=== PATIENT | female | born 1980 | race Caucasian/White ===

== ENCOUNTER 2016-08-14 12:02 | Emergency (ER) | payer BC ==
[~2016-08-14] VITALS: Ht 167.6 cm; Wt 70.9 kg
[~2016-08-14 12:02] MED LIST: VANC5CAP PO
[2016-08-14 12:10] VITALS: TEMP 37; Ht 167.6 cm; Wt 70.9 kg
[2016-08-14] MEDS ORDERED: XYLOCAINE 1%/SOD BICARB 20 ML VIAL INFIL ONE (12:45)
[2016-08-14 12:56] LABS: BASO % 0.3 %; BASO ABS # 0.02 K/uL (0-0.2); COMPLETE YES; EOS % 0.6 %; HEMATOCRIT 35.3 % (37-47); IG% 0.1 %; LYMPH % 9.6 %; LYMPH ABS # 0.67 K/uL (1.2-3.4); MEAN CELL VOLUME 85.9 fL (80-100); MEAN CORPUSCULAR HEMOGLOBIN 29.9 pg (25-34); MEAN CORPUSCULAR HGB CONC 34.8 g/dl (32-36); MEAN PLATELET VOLUME 10.5 fL (7.4-10.4); MONO % 16.1 %; NEUT % 73.3 %; PLATELET COUNT 263 K/uL (130-400); RED BLOOD COUNT 4.11 M/uL (4.2-5.4); WHITE BLOOD COUNT 7.01 K/uL (4.8-10.8)
[2016-08-14 13:02] LABS: BUN/CREATININE RATIO 10.9 (10-20); CALCIUM 9.1 mg/dl (8.5-10.1); CREATININE 0.98 mg/dl (0.60-1.20); POTASSIUM 3.5 mmol/L (3.5-5.1)
--- NOTE | 2016-08-14 13:03 | DIAGNOSTIC IMAGING REPORT ---
CT OF THE HEAD WITHOUT CONTRAST CLINICAL HISTORY: Syncope with head injury. COMPARISON STUDY: No previous studies for comparison. CT DOSE: 537.48 mGy.cm TECHNIQUE: Helical axial images of the head were obtained without IV contrast. Automated exposure control was utilized for the study. FINDINGS: No acute intracranial hemorrhage, midline shift or mass effect is present. Brain volume is normal. Ventricular system is normal. The basilar cisterns are patent. There are no extra-axial collections. Elise-white differentiation is maintained. There are no findings to suggest acute dural sinus thrombosis or acute territorial infarct. There is a right supraorbital scalp laceration. No calvarial fracture is present. IMPRESSION: 1. No acute intracranial findings. 2. Right supraorbital laceration. No calvarial fracture. Electronically signed by: Gerry Bernabe M.D. 08/14/2016 1:01 PM Dictated Date/Time: 08/14/2016 12:59 PM
[2016-08-14 13:07] LABS: PROTHROMBIN TIME (PATIENT) 10.8 SECONDS (9.0-12.0)
--- NOTE | 2016-08-14 13:21 | DIAGNOSTIC IMAGING REPORT ---
CHEST 2 VIEWS ROUTINE CLINICAL HISTORY: cough, fever COMPARISON STUDY: No previous studies for comparison. FINDINGS: The cardiac and mediastinal contours are normal. There is no evidence of focal pulmonary consolidation. There is no evidence of failure. No pleural effusions are visualized.[ IMPRESSION: No active disease in the chest. Electronically signed by: Manuel Nguyen M.D. 08/14/2016 1:19 PM Dictated Date/Time: 08/14/2016 1:18 PM
[2016-08-14] MEDS ORDERED: OSEL75CA12 PO (14:24)
--- NOTE | 2016-08-14 14:27 | EMERGENCY ROOM VISIT NOTE ---
History First contact with patient: 12:23 Chief Complaint: FLU LIKE SX Stated Complaint: COLD/FLU, PASSED OUT AND HIT HEAD History of Present Illness The patient is a 36 year old female who presents to the Emergency Room with complaints of flulike symptoms. The patient states yesterday when she woke up she had chest congestion and a cough. Then at approximately 5:55 PM she started with chills and had a temperature 101. She started taking NyQuil and Mucinex. Today when she woke up she thought she was feeling a little better. She put toast in the toaster and then went to go to the bathroom. When she went to the bathroom she thought she was going to be nauseated and threw her up so she picked up a trash can and was holding it in front of her while sitting on the toilet. The next thing you know she was lying on the floor with blood coming from her head. Her states she was only out for approximately a minute. He heard the thump and came immediately to the bathroom. The patient currently denies any dizziness but has a slight headache at the area of a small laceration on her right forehead. The patient denies any ear pain or pressure or any sore throat. The patient does admit to some head congestion today. She did not vomit. She denies any abdominal pain or diarrhea. The patient states she did have the influenza vaccine. Review of Systems 10 system review was performed and was negative unless stated otherwise history of present illness. Past Medical/Surgical History Medical Problems: (1) No significant past medical history (2) Ovarian cyst Surgical Problems: (1) History of arthroscopic knee surgery (2) History of tubal ligation (3) History of wisdom tooth extraction Family History FH: cancer FH: diabetes mellitus FH: gallbladder disease FH: hypertension FH: lung disease Social History Smoking Status: Never Smoker Alcohol Use: none Marital Status: Occupation Status: employed Current/Historical Medications Scheduled Oseltamivir (Tamiflu), 75 MG PO BID Allergies Coded Allergies: Azithromycin (Unverified Allergy, Severe, RASH, 08/14/16) Onion (Unverified Allergy, Severe, GI SYMPTOMS, 08/14/16) Latex1 -Allergic Contact Dermititis (Verified Allergy, Intermediate, RASH , 08/14/16) Physical Exam Vital Signs Date Time Temp Pulse Resp B/P Pulse Ox O2 Delivery O2 Flow Rate FiO2 08/14/16 12:10 37.0 95 18 108/67 100 Room Air Physical Exam PHYSICAL EXAM: Vital Signs were reviewed: Reviewed Nurse's notes and agree. Oxygen saturation is 98 % on room air which is normal . GENERAL: 36-year-old female appears in no acute distress. MENTAL STATUS: Alert, oriented, coherent. HEAD: The patient has a 1 cm laceration above the right eyebrow with a small palpable mass that is tender to palpation. The remainder of the head is unremarkable. EARS: Canals clear. No hemotympanum noted TMs good light reflex , no erythema or fluid level noted. EYES: PERRLA, EOMs intact. NOSE: Nasal mucosa with moderate erythema engorgement. PHARYNX: No erythema, no edema noted. No exudate noted. Airway is adequate. NECK: Supple, non-tender. No lymphadenopathy noted. LUNGS: Clear to auscultation without wheezes rales or rhonchi. CARDIAC: Regular rate and rhythm without murmur. CERVICAL SPINE: Nontender to palpation over the spinous processes and paravertebral region. Full range of motion without pain. NEURO: Cranial nerves II through XII intact. Fine motor intact with alternating finger motions. Cerebellar bowel or function intact with [id number]. Medical Decision & Procedures ER Provider Diagnostic Interpretation: CHEST 2 VIEWS ROUTINE CLINICAL HISTORY: cough, fever COMPARISON STUDY: No previous studies for comparison. FINDINGS: The cardiac and mediastinal contours are normal. There is no evidence of focal pulmonary consolidation. There is no evidence of failure. No pleural effusions are visualized.[ IMPRESSION: No active disease in the chest. Electronically signed by: Manuel Nguyen M.D. 08/14/2016 1:19 PM Dictated Date/Time: 08/14/2016 1:[address] OF THE HEAD WITHOUT CONTRAST CLINICAL HISTORY: Syncope with head injury. COMPARISON STUDY: No previous studies for comparison. CT DOSE: 537.48 mGy.cm TECHNIQUE: Helical axial images of the head were obtained without IV contrast. Automated exposure control was utilized for the study. FINDINGS: No acute intracranial hemorrhage, midline shift or mass effect is present. Brain volume is normal. Ventricular system is normal. The basilar cisterns are patent. There are no extra-axial collections. Elise-white differentiation is maintained. There are no findings to suggest acute dural sinus thrombosis or acute territorial infarct. There is a right supraorbital scalp laceration. No calvarial fracture is present. IMPRESSION: 1. No acute intracranial findings. 2. Right supraorbital laceration. No calvarial fracture. Electronically signed by: Gerry Bernabe M.D. 08/14/2016 1:01 PM Laboratory Results 08/14/16 12:20 Red Blood Count 4.11, Mean Corpuscular Volume 85.9, Mean Corpuscular Hemoglobin 29.9, Mean Corpuscular Hemoglobin Concent 34.8, Mean Platelet Volume 10.5, Neutrophils (%) (Auto) 73.3, Lymphocytes (%) (Auto) 9.6, Monocytes (%) (Auto) 16.1, Eosinophils (%) (Auto) 0.6, Basophils (%) (Auto) 0.3, Neutrophils # (Auto ) 5.14, Lymphocytes # (Auto) 0.67, Monocytes # (Auto) 1.13, Eosinophils # (Auto ) 0.04, Basophils # (Auto) 0.02 08/14/16 12:20 Test 08/14/16 12:20 08/14/16 12:23 White Blood Count 7.01 K/uL (4.8-10.8) Red Blood Count 4.11 M/uL (4.2-5.4) Hemoglobin 12.3 g/dL (12.0-16.0) Hematocrit 35.3 % (37-47) Mean Corpuscular Volume 85.9 fL (80-100) Mean Corpuscular Hemoglobin 29.9 pg (25-34) Mean Corpuscular Hemoglobin Concent 34.8 g/dl (32-36) Platelet Count 263 K/uL (130-400) Mean Platelet Volume 10.5 fL (7.4-10.4) Neutrophils (%) (Auto) 73.3 % Lymphocytes (%) (Auto) 9.6 % Monocytes (%) (Auto) 16.1 % Eosinophils (%) (Auto) 0.6 % Basophils (%) (Auto) 0.3 % Neutrophils # (Auto) 5.14 K/uL (1.4-6.5) Lymphocytes # (Auto) 0.67 K/uL (1.2-3.4) Monocytes # (Auto) 1.13 K/uL (0.11-0.59) Eosinophils # (Auto) 0.04 K/uL (0-0.5) Basophils # (Auto) 0.02 K/uL (0-0.2) RDW Standard Deviation 40.1 fL (36.4-46.3) RDW Coefficient of Variation 12.6 % (11.5-14.5) Immature Granulocyte % (Auto) 0.1 % Immature Granulocyte # (Auto) 0.01 K/uL (0.00-0.02) Prothrombin Time 10.8 SECONDS (9.0-12.0) Prothromb Time International Ratio 1.0 (0.9-1.1) Activated Partial Thromboplast Time 24.7 SECONDS (21.0-31.0) Partial Thromboplastin Ratio 1.0 Anion Gap 10.0 mmol/L (3-11) Est Creatinine Clear Calc Drug Dose 73.5 ml/min Estimated GFR () 85.4 Estimated GFR (Non- 73.7 BUN/Creatinine Ratio 10.9 (10-20) Calcium Level 9.1 mg/dl (8.5-10.1) Influenza Type A Antigen POS for Influ A (NEG) Influenza Type B Antigen Neg for Influ B (NEG) Procedure Wound Repair: Complexity: Basic. Verbal consent was obtained after the risks and benefits were explained, including but not limited to bleeding, scarring, infection, pain, and bone/joint /nerve damage. The skin was prepped with betadine and a sterile field set. The wound was anesthetized with 2.0 ml of 1% buffered lidocaine. With direct pressure the bleeding subsided. Copious irrigation was performed using sterile saline. The wound was explored for foreign bodies and none found. Debridement was not performed. The wound edges were approximated using 6-0 Ethilon with 3 simple interrupted sutures. Hemostasis and excellent approximation was achieved. Antibacterial ointment and a sterile dressing applied. Detailed wound care instructions and signs and symptoms of infection reviewed with the patient. No complications and the patient tolerated the procedure well. ECG Indication: syncope Rhythm: normal sinus Findings: no acute ischemic change ED Course The patient was evaluated. The patient was placed on a monitor. IV access was obtained. EKG was ordered and interpreted by myself as above without any acute findings. This will later be interpreted by the field service supervisor. Chest x-ray was ordered and interpreted by the radiologist and myself as above without any acute findings. CT of the head was ordered and interpreted by the radiologist as above without any acute findings. CBC and differential, renal profile, coags were ordered. Labs are reviewed and were unremarkable. Rapid influenza was positive for influenza A and negative for influenza B. Repair of the laceration was performed as above. The patient was informed of all findings and discharged home in stable condition. Medical Decision Differential diagnosis include vasovagal syncope, dehydration, hypoglycemia, anxiety Differential diagnosis include influenza, pneumonia, URI Impression Primary Impression: Influenza A Additional Impressions: Syncope Facial laceration Departure Information Dispostion Home / Self-Care Condition GOOD Prescriptions Oseltamivir (Tamiflu) 75 Mg Cap 75 MG PO BID for 5 Days, #10 CAP Prov: Belkis Manning PA-C 08/14/16 Referrals Zeferino Parker D.O. (PCP) Forms HOME CARE DOCUMENTATION FORM, IMPORTANT VISIT INFORMATION Patient Instructions My [facility] Additional Instructions Take Tamiflu as prescribed. [id number] symptomatic treatment such as pushing fluids, Tylenol and/or ibuprofen as needed for fever and muscle aches. Antibiotic ointment and a bandage for 3 days to the laceration. Any signs of infection, follow-up with your family doctor for antibiotic treatment. Suture removal in 6 days. If any symptoms should worsen, return to ER. Follow-up with your family physician in 3 days for reevaluation. Problem Qualifiers
[2016-08-14 14:40] VITALS: BP 120/67; PULSE 86; O2SAT 98
== END 2016-08-14 14:41 | disposition home or self-care (01) ==
LOC: C.EDB 12:04 → C.EDC 14:41
DX: J09.X2 Influenza due to identified novel influenza A virus with other respiratory manifestations (principal); R55 Syncope and collapse; S01.01XA Laceration without foreign body of scalp, initial encounter; W19.XXXA Unspecified fall, initial encounter; N83.209 Unspecified ovarian cyst, unspecified side; Z98.51 Tubal ligation status; Z98.890 Other specified postprocedural states; Z88.1 Allergy status to other antibiotic agents; Z91.018 Allergy to other foods; Z91.040 Latex allergy status; Z80.9 Family history of malignant neoplasm, unspecified; Z83.3 Family history of diabetes mellitus; Z83.79 Family history of other diseases of the digestive system; Z82.49 Family history of ischemic heart disease and other diseases of the circulatory system

== ENCOUNTER → 2017-01-03 | Outpatient (CLI) | payer BC | END | disposition home or self-care (01) | LOC: C.PAPS 16:17 | PROVIDERS: ATTEND Obstetrics & Gynecology | DX: Z01.419 Encounter for gynecological examination (general) (routine) without abnormal findings (principal) ==